=== PATIENT | male | born 1975 | race Caucasian/White ===

== ENCOUNTER → 2021-03-01 | Outpatient (REF) | payer BC ==
[2021-03-01 21:51] LABS: CREATININE, URINE 55.4 MG/DL; MALB URINE SIEMENS 13.3 MG/L
== END ==
LOC: M LAB REF 16:59
PROVIDERS: ATTEND Internal Medicine Endocrinology, Diabetes & Metabolism
DX: E11.65 Type 2 diabetes mellitus with hyperglycemia (principal)